=== PATIENT | male | born 1950 | race Caucasian/White ===

== ENCOUNTER 2017-03-15 07:34 | Inpatient (IN) | payer OTHER ==
--- NOTE | 2017-03-15 07:51 | ED ---
General Adult HPI - General Chief complaint: Dizziness Stated complaint: vertigo Time Seen by Provider: 03/15/17 07:36 Source: patient, EMS, RN notes reviewed, old records reviewed Mode of arrival: EMS Limitations: no limitations - History of Present Illness Initial comments: This is a 66-year-old male to the ER for evaluation today. This patient presents today for evaluation of dizziness. Patient has severe dizziness at this time, room spinning around when he awoke this morning. Carotid to get up and fell back into his bed secondary to dizziness. Symptoms were the bed and fell to the ground with unable to walk. Patient has no prior history of vertigo , no prior history of CVA. Patient does have high cholesterol as well as diabetes - Related Data Home Medications Medication Instructions Recorded Confirmed Aspirin 81 mg PO DAILY 09/06/15 03/15/17 Atorvastatin Calcium [Lipitor] 20 mg PO HS 09/06/15 03/15/17 metFORMIN HCL 1,000 mg PO BID 09/06/15 03/15/17 Ibuprofen [Motrin] 400 mg PO DAILY PRN 03/15/17 03/15/17 Saxagliptin HCl [Onglyza] 2.5 mg PO DAILY 03/15/17 03/15/17 Allergies Allergy/AdvReac Type Severity Reaction Status Date / Time No Known Allergies Allergy Verified 03/15/17 08:33 Review of Systems ROS Statement: Those systems with pertinent positive or pertinent negative responses have been documented in the HPI. ROS Other: All systems not noted in ROS Statement are negative. Past Medical History Past Medical History: Diabetes Mellitus, Hyperlipidemia Additional Past Medical History / Comment(s): hypercholestremia History of Any Multi-Drug Resistant Organisms: None Reported Past Surgical History: No Surgical Hx Reported Past Anesthesia/Blood Transfusion Reactions: No Reported Reaction Past Psychological History: No Psychological Hx Reported Smoking Status: Former smoker Past Alcohol Use History: Occasional Past Drug Use History: None Reported - Past Family History Father Family Medical History: No Reported History General Exam - General Exam Comments Initial Comments: NIH 0, negative heel jimenez, negative finger-nose Limitations: no limitations General appearance: alert, in no apparent distress Head exam: Present: atraumatic, normocephalic, normal inspection Eye exam: Present: normal appearance, PERRL, EOMI. Absent: scleral icterus, conjunctival injection, periorbital swelling ENT exam: Present: normal exam, mucous membranes moist Neck exam: Present: normal inspection. Absent: tenderness, meningismus, lymphadenopathy Respiratory exam: Present: normal lung sounds bilaterally. Absent: respiratory distress, wheezes, rales, rhonchi, stridor Cardiovascular Exam: Present: regular rate, normal rhythm, normal heart sounds. Absent: systolic murmur, diastolic murmur, rubs, gallop, clicks GI/Abdominal exam: Present: soft, normal bowel sounds. Absent: distended, tenderness, guarding, rebound, rigid Extremities exam: Present: normal inspection, full ROM, normal capillary refill. Absent: tenderness, pedal edema, joint swelling, calf tenderness Back exam: Present: normal inspection Neurological exam: Present: alert, oriented X3, CN II-XII intact Psychiatric exam: Present: normal affect, normal mood Skin exam: Present: warm, dry, intact, normal color. Absent: rash Course Vital Signs 03/15/17 03/15/17 03/15/17 07:44 07:57 08:45 Temperature 97.4 F L 97.4 F L 97.6 F Pulse Rate 74 68 75 Respiratory 18 15 16 Rate Blood Pressure 144/69 143/69 143/69 O2 Sat by Pulse 99 99 96 Oximetry 03/15/17 09:26 Temperature Pulse Rate 71 Respiratory 16 Rate Blood Pressure 108/65 O2 Sat by Pulse 97 Oximetry - Reevaluation(s) Reevaluation #1: 03/15/17 09:33 Attempt to walk patient, patient unable to ambulate secondary to severe dizziness and ataxia EKG Findings - EKG Comments: EKG Findings:: EKG shows normal sinus rhythm rate of 71, IL 134, QRS 86, QTC 417 Medical Decision Making - Medical Decision Making 62 female to the ER for evaluation of room spinning severe ataxia severe dizziness. Symptoms started after he awoke this morning. Her when he awoke with symptoms this morning. Patient denies any other neurological complaint, patient is completely unable to walk at this time. Patient be admitted for neurological evaluation - Lab Data Result diagrams: 03/15/17 07:40 03/15/17 07:40 Lab Results 03/15/17 03/15/17 03/15/17 Range/Units 07:40 07:40 07:40 WBC 10.2 (3.8-10.6) k/uL RBC 4.83 (4.30-5.90) m/uL Hgb 15.5 (13.0-17.5) gm/dL Hct 45.7 (39.0-53.0) % MCV 94.5 (80.0-100.0) fL MCH 32.0 (25.0-35.0) pg MCHC 33.9 (31.0-37.0) g/dL RDW 12.9 (11.5-15.5) % Plt Count 209 (150-450) k/uL Neutrophils % 62 % Lymphocytes % 25 % Monocytes % 8 % Eosinophils % 2 % Basophils % 1 % Neutrophils # 6.3 (1.3-7.7) k/uL Lymphocytes # 2.5 (1.0-4.8) k/uL Monocytes # 0.8 (0-1.0) k/uL Eosinophils # 0.2 (0-0.7) k/uL Basophils # 0.1 (0-0.2) k/uL PT (9.0-12.0) sec INR (<1.2) APTT (22.0-30.0) sec Sodium 140 (137-145) mmol/L Potassium 4.1 (3.5-5.1) mmol/L Chloride 105 (98-107) mmol/L Carbon Dioxide 24 (22-30) mmol/L Anion Gap 11 mmol/L BUN 13 (9-20) mg/dL Creatinine 0.97 (0.66-1.25) mg/dL Est GFR (MDRD) Af Amer >60 (>60 ml/min/1.73 sqM) Est GFR (MDRD) Non-Af >60 (>60 ml/min/1.73 sqM) Glucose 215 H (74-99) mg/dL POC Glucose (mg/dL) (75-99) mg/dL POC Glu Flexographic Press Plate Setter ID Calcium 9.0 (8.4-10.2) mg/dL Phosphorus 3.1 (2.5-4.5) mg/dL Magnesium 1.7 (1.6-2.3) mg/dL Total Bilirubin 0.5 (0.2-1.3) mg/dL AST 18 (17-59) U/L ALT 36 (21-72) U/L Alkaline Phosphatase 82 (38-126) U/L Total Creatine Kinase 72 (55-170) U/L CK-MB (CK-2) 0.6 (0.0-2.4) ng/mL CK-MB (CK-2) Rel Index 0.8 Troponin I <0.012 (0.000-0.034) ng/mL Total Protein 6.1 L (6.3-8.2) g/dL Albumin 3.9 (3.5-5.0) g/dL 03/15/17 03/15/17 Range/Units 07:40 07:54 WBC (3.8-10.6) k/uL RBC (4.30-5.90) m/uL Hgb (13.0-17.5) gm/dL Hct (39.0-53.0) % MCV (80.0-100.0) fL MCH (25.0-35.0) pg MCHC (31.0-37.0) g/dL RDW (11.5-15.5) % Plt Count (150-450) k/uL Neutrophils % % Lymphocytes % % Monocytes % % Eosinophils % % Basophils % % Neutrophils # (1.3-7.7) k/uL Lymphocytes # (1.0-4.8) k/uL Monocytes # (0-1.0) k/uL Eosinophils # (0-0.7) k/uL Basophils # (0-0.2) k/uL PT 10.2 (9.0-12.0) sec INR 1.0 (<1.2) APTT 20.5 L (22.0-30.0) sec Sodium (137-145) mmol/L Potassium (3.5-5.1) mmol/L Chloride (98-107) mmol/L Carbon Dioxide (22-30) mmol/L Anion Gap mmol/L BUN (9-20) mg/dL Creatinine (0.66-1.25) mg/dL Est GFR (MDRD) Af Amer (>60 ml/min/1.73 sqM) Est GFR (MDRD) Non-Af (>60 ml/min/1.73 sqM) Glucose (74-99) mg/dL POC Glucose (mg/dL) 197 H (75-99) mg/dL POC Glu Flexographic Press Plate Setter ID Facundo Drake Calcium (8.4-10.2) mg/dL Phosphorus (2.5-4.5) mg/dL Magnesium (1.6-2.3) mg/dL Total Bilirubin (0.2-1.3) mg/dL AST (17-59) U/L ALT (21-72) U/L Alkaline Phosphatase (38-126) U/L Total Creatine Kinase (55-170) U/L CK-MB (CK-2) (0.0-2.4) ng/mL CK-MB (CK-2) Rel Index Troponin I (0.000-0.034) ng/mL Total Protein (6.3-8.2) g/dL Albumin (3.5-5.0) g/dL Disposition Clinical Impression: Vertigo, Ataxia Disposition: ADMITTED IP TO THIS HOSP Condition: Undetermined Referrals: Imer Echols DO [Primary Care Provider] - 1-2 days
[2017-03-15] MEDS ORDERED: DIAZEPAM 5 MG/ML 2 ML SYRINGE IVP STA (08:05)
[2017-03-15] MEDS ORDERED: SODIUM CHLORIDE 0.9% 1,000 ML IV STA (08:05)
[2017-03-15] MEDS ORDERED: ONDANSETRON 4 MG/2 ML VIAL IVP STA (08:05)
[2017-03-15 08:17] LABS: Glucose,Whole Blood 197 mg/dL (75-99)
[2017-03-15 08:22] LABS: Basophils # (A) 0.1 k/uL (0-0.2); Basophils % (A) 1 %; CH 31.8; CHCM 33.8; Eosinophils # (A) 0.2 k/uL (0-0.7); Eosinophils % (A) 2 %; HCT 45.7 % (39.0-53.0); HDW 2.24; HGB 15.5 gm/dL (13.0-17.5); Luc # (Auto) 0.28; Luc % (Auto) 3; Lymphocytes # (A) 2.5 k/uL (1.0-4.8); Lymphocytes % (A) 25 %; MCHC 33.9 g/dL (31.0-37.0); MCV 94.5 fL (80.0-100.0); Mean Platelet Volume 8.2; Monocytes # (A) 0.8 k/uL (0-1.0); Monocytes % (A) 8 %; Neutrophils # (A) 6.3 k/uL (1.3-7.7); Neutrophils % (A) 62 %; RBC 4.83 m/uL (4.30-5.90); RDW 12.9 % (11.5-15.5); WBC 10.2 k/uL (3.8-10.6); WBC (Perox) 9.77
[2017-03-15 08:31] LABS: ALT 36 U/L (21-72); AST 18 U/L (17-59); Alkaline Phosphatase 82 U/L (38-126); Anion Gap 11 mmol/L; Blood Urea Nitrogen 13 mg/dL (9-20); Carbon Dioxide 24 mmol/L (22-30); Chloride 105 mmol/L (98-107); Glucose 215 mg/dL (74-99); Magnesium 1.7 mg/dL (1.6-2.3); Non-African American GFR(MDRD) >60 (>60 ml/min/1.73 sqM); Phosphorous 3.1 mg/dL (2.5-4.5); Potassium 4.1 mmol/L (3.5-5.1); Sodium 140 mmol/L (137-145); Total Bilirubin 0.5 mg/dL (0.2-1.3); Total Protein 6.1 g/dL (6.3-8.2)
[2017-03-15 08:32] LABS: Prothrombin Time 10.2 sec (9.0-12.0)
--- NOTE | 2017-03-15 08:35 | CT ---
EXAMINATION TYPE: CT brain wo con DATE OF EXAM: 03/15/2017 COMPARISON: NONE HISTORY: vertigo CT DLP: 1008.4 mGycm Automated exposure control for dose reduction was used. FINDINGS: Central structures are midline. There is no evidence of hydrocephalus. No acute focal lesion, mass ef fect or midline shift is seen. I do not see evidence of intracranial blood. No CP angle mass lesion i s seen. The orbits appear normal. There is mild mucoperiosteal thickening involving the maxillary sinuses bilaterally. There is a 1.2 c m retention cyst or polyp involving the medial wall of the left maxillary sinus. Mastoid air cells ar e clear. IMPRESSION: 1. NO ACUTE INTRACRANIAL ABNORMALITY. 2. MILD, CHRONIC MAXILLARY SINUS MUCOSAL DISEASE.
[2017-03-15 08:39] LABS: Partial Thromboplastin Time 20.5 sec (22.0-30.0)
[2017-03-15 08:50] LABS: Creatine Kinase 72 U/L (55-170)
[2017-03-15 09:03] LABS: Creatine Kinase MB 0.6 ng/mL (0.0-2.4); Troponin I <0.012 ng/mL (0.000-0.034)
[2017-03-15] MEDS ORDERED: ASPIRIN 325 MG TAB PO STA (09:29)
[2017-03-15] MEDS ORDERED: MECLIZINE 25 MG TAB PO PRN (09:37)
[2017-03-15] MEDS ORDERED: ONDANSETRON 4 MG/2 ML VIAL IVP PRN (09:38)
[2017-03-15] MEDS: SODIUM CHLORIDE 0.9% 1,000 ML IV SCH ×2 (09:56→22:05)
--- NOTE | 2017-03-15 10:22 | US ---
EXAMINATION TYPE: US carotid duplex BILAT DATE OF EXAM: 03/15/2017 COMPARISON: NONE CLINICAL HISTORY: Stenosis. Vertigo EXAM MEASUREMENTS: RIGHT: Peak Systolic Velocity (PSV) cm/sec ----- Right CCA: 107.5 ----- Right ICA: 77.9 ----- Right ECA: 115.1 ICA/CCA ratio: 0.7 RIGHT: End Diastole cm/sec ----- Right CCA: 7.4 ----- Right ICA: 27.4 ----- Right ECA: 7.6 LEFT: Peak Systolic Velocity (PSV) cm/sec ----- Left CCA: 98.4 ----- Left ICA: 84.0 ----- Left ECA: 108.6 ICA/CCA ratio: 0.9 LEFT: End Diastole cm/sec ----- Left CCA: 14.4 ----- Left ICA: 25.8 ----- Left ECA: 10.2 VERTEBRALS (direction of flow): Right Vertebral: Antegrade Left Vertebral: Antegrade Mild plaque bilateral bifurcations. No evidence of significant stenosis IMPRESSION: I DO NOT SEE EVIDENCE OF A HEMODYNAMICALLY SIGNIFICANT STENOSIS IN EITHER CAROTID SYSTEM. Criteria for Assigning % of Stenosis / Diameter reduction (Estimation based on the indirect measurements of the internal carotid artery velocities (ICA PSV). 1. Normal (no stenosis)=ICA PSV < 125 cm/s: ratio < 2.0: ICA EDV<40 cm/s. 2. Less than 50% stenosis=ICA PSV < 125 cm/s: ratio < 2.0: ICA EDV<40 cm/s. 3. 50 to 69% stenosis=ICA PSV of 125 to 230 cm/s: ration 2.0 ? 4.0: ICA EDV 40-100 cm/s. 4. Greater than 70% stenosis to near occlusion= ICA PSV > 230 cm/s: ratio > 4.0: ICA EDV > 100 cm/s. 5. Near occlusion= ICA PSV velocities may be low or undetectable: variable ratio and ICA EDV. 6. Total occlusion=unable to detect flow.
--- NOTE | 2017-03-15 10:42 | ECHOF ---
Referral Reason:Thrombus MEASUREMENTS -------- HEIGHT: 152.4 cm WEIGHT: 93.0 kg BP: 130/40 RVIDd: 3.2 cm (< 3.3) IVSd: 1.1 cm (0.6 - 1.1) LVIDd: 4.5 cm (3.9 - 5.3) LVPWd: 0.9 cm (0.6 - 1.1) IVSs: 1.5 cm LVIDs: 4.2 cm LVPWs: 0.9 cm LA Diam: 3.1 cm (2.7 - 3.8) LAESV Index (A-L): 30.45 ml/m Ao Diam: 3.6 cm (2.0 - 3.7) AV Cusp: 2.4 cm (1.5 - 2.6) LA Diam: 3.7 cm (2.7 - 3.8) MV EXCURSION: 23.601 mm (> 18.000) MV EF SLOPE: 135 mm/s (70 - 150) EPSS: 0.4 cm MV E Clay: 0.70 m/s MV DecT: 230 ms MV A Clay: 0.80 m/s MV E/A Ratio: 0.89 RAP: 5.00 mmHg RVSP: 10.74 mmHg FINDINGS -------- Sinus rhythm. This was a technically good study. There is mild concentric left ventricular hypertrophy. Overall left ventricular systolic function is normal with, an EF between 55 - 60 %. The right ventricle is normal in size. LA is midly dilated 29-33ml/m2. The right atrial size is normal. There is mild aortic valve sclerosis. There is no evidence of aortic regurgitation. Mild mitral annular calcification present. Mild mitral regurgitation is present. Mild tricuspid regurgitation present. There is no evidence of pulmonary hypertension. The right ventricular systolic pressure, as measured by Doppler, is 10.74mmHg. There is no pulmonic regurgitation present. The aortic root size is normal. There is no pericardial effusion. CONCLUSIONS -------- 1. There is mild concentric left ventricular hypertrophy. 2. The aortic root size is normal. 3. There is no pericardial effusion. 4. Overall left ventricular systolic function is normal with, an EF between 55 - 60 %. 5. LA is midly dilated 29-33ml/m2. 6. There is mild aortic valve sclerosis. 7. Mild mitral annular calcification present. 8. Mild mitral regurgitation is present. 9. Mild tricuspid regurgitation present. 10. There is no evidence of pulmonary hypertension. 11. The right ventricular systolic pressure, as measured by Doppler, is 10.74mmHg. GATE SUPERVISOR: Meagan Lee RDCS
--- NOTE | 2017-03-15 13:59 | P.HPIM ---
History of Present Illness Patient is a 66-year-old male came in with compensative room spinning around her vertigo has been going on for about a week worsens with head movement. Patient denied any hearing or hearing problems patient denied any weakness anywhere patient denied any fullness in the ears patient denied any sinusitis like symptoms. Patient denied any fever chills, nausea vomiting. Patient is unstable and unable to walk literally has been crawling lately. I tried to stand him up patient is positive Romberg sign with eyes open and closed and other cerebellar signs are negative. Patient does not appear to have any focal weakness but does have unsteadiness I did not appreciate any significant truncal ataxia. I did perform Cameron Hallspike maneuver with partial improvement in symptoms but symptoms came back after after a while Review of Systems REVIEW OF SYSTEMS: CONSTITUTIONAL: No fever, no malaise, no fatigue. HEENT: No recent visual problems or hearing problems. Denied any sore throat. CARDIOVASCULAR: No chest pain, orthopnea, PND, no palpitations, no syncope. PULMONARY: No shortness of breath, no cough, no hemoptysis. GASTROINTESTINAL: No diarrhea, no nausea, no vomiting, no abdominal pain. Normoactive bowel sounds. NEUROLOGICAL: No headaches, no weakness, no numbness. HEMATOLOGICAL: Denies any bleeding or petechiae. GENITOURINARY: Denies any burning micturition, frequency, or urgency. MUSCULOSKELETAL/RHEUMATOLOGICAL: Denies any joint pain, swelling, or any muscle pain. ENDOCRINE: Denies any polyuria or polydipsia. The rest of the 14-point review of systems is negative. Past Medical History Past Medical History: Diabetes Mellitus, Hyperlipidemia Additional Past Medical History / Comment(s): hypercholestremia History of Any Multi-Drug Resistant Organisms: None Reported Past Surgical History: No Surgical Hx Reported Past Anesthesia/Blood Transfusion Reactions: No Reported Reaction Past Psychological History: No Psychological Hx Reported Smoking Status: Former smoker Past Alcohol Use History: Occasional Past Drug Use History: None Reported - Past Family History Father Family Medical History: No Reported History Medications and Allergies Home Medications Medication Instructions Recorded Confirmed Type Aspirin 81 mg PO DAILY 09/06/15 03/15/17 History Atorvastatin Calcium [Lipitor] 20 mg PO HS 09/06/15 03/15/17 History metFORMIN HCL 1,000 mg PO BID 09/06/15 03/15/17 History Ibuprofen [Motrin] 400 mg PO DAILY PRN 03/15/17 03/15/17 History Saxagliptin HCl [Onglyza] 2.5 mg PO DAILY 03/15/17 03/15/17 History Allergies Allergy/AdvReac Type Severity Reaction Status Date / Time No Known Allergies Allergy Verified 03/15/17 08:33 Physical Exam Vitals: Vital Signs Temp Pulse Pulse Resp BP BP Pulse Ox 03/15/17 12:40 98.4 F 76 18 131/63 97 03/15/17 12:29 98.2 F 75 16 130/68 98 03/15/17 11:29 98.5 F 75 16 108/55 98 03/15/17 10:30 97.7 F 71 18 136/68 97 03/15/17 10:15 97.5 F L 70 14 151/70 97 03/15/17 09:26 97.7 F 71 16 108/65 97 03/15/17 08:45 97.6 F 75 16 143/69 96 03/15/17 07:57 97.4 F L 68 15 143/69 99 03/15/17 07:44 97.4 F L 74 18 144/69 99 Intake and Output 03/14/17 03/15/17 03/15/17 22:59 06:59 14:59 Other: Weight 92.986 kg Patient Weight 03/16/17 06:59 Weight 92.986 kg PHYSICAL EXAMINATION: GENERAL: The patient is alert and oriented x3, not in any acute distress. Well developed, well nourished. HEENT: Pupils are round and equally reacting to light. EOMI. No scleral icterus. No conjunctival pallor. Normocephalic, atraumatic. No pharyngeal erythema. No thyromegaly. CARDIOVASCULAR: S1 and S2 present. No murmurs, rubs, or gallops. PULMONARY: Chest is clear to auscultation, no wheezing or crackles. ABDOMEN: Soft, nontender, nondistended, normoactive bowel sounds. No palpable organomegaly. MUSCULOSKELETAL: No joint swelling or deformity. EXTREMITIES: No cyanosis, clubbing, or pedal edema. NEUROLOGICAL: As mentioned in HPI SKIN: No rashes. Results CBC & Chem 7: 03/15/17 07:40 03/15/17 07:40 Labs: Abnormal Lab Results - Last 24 Hours (Table) 03/15/17 03/15/17 03/15/17 Range/Units 07:40 07:40 07:54 APTT 20.5 L (22.0-30.0) sec Glucose 215 H (74-99) mg/dL POC Glucose (mg/dL) 197 H (75-99) mg/dL Total Protein 6.1 L (6.3-8.2) g/dL Assessment and Plan Plan: #1 vertigo: Not sure whether patient has central or peripheral vertigo. Patient 's Romberg sign is positive with eyes open. Because of which there is concern of cerebellar in involvement. Because of which neurology was consulted. Patient is on meclizine at this point of time. I'll leave the dishes and off MRI to neurology. Patient does have unstable gait because of his the concern is more for cerebellar involvement. Patient underwent carotid Doppler and echocardiogram all of which are essentially within normal limits patient is presently on aspirin. #2 type 2 diabetes mellitus: Patient was resumed on his home regimen monitor blood sugars sliding scale insulin. #3 hyperlipidemia
[2017-03-15 18:31] VITALS: BMI 29.3
[2017-03-15] MEDS ORDERED: IBUPROFEN 200 MG TAB PO PRN (19:44)
[2017-03-15] MEDS: MECLIZINE 25 MG TAB PO PRN (20:57)
[2017-03-15] MEDS ORDERED: ATORVASTATIN 20 MG TAB PO SCH (21:00)
[2017-03-15] MEDS ORDERED: ATORVASTATIN 80 MG TAB PO SCH (21:00)
--- NOTE | 2017-03-15 21:02 | P.CNNES ---
History of Present Illness Consult date: 03/15/17 History of Present Illness: The patient is a 66-year-old right-handed white male who states that he woke up around 6:30 AM and fell back into bed because of severe vertigo. When he stood up to walk he fell to the floor because of vertigo. He had some nausea but no vomiting. He asked his to call EMS and he was brought to the hospital. He states he is feeling better now but continues to have some vertigo with fast head movements or quick movements of his body. He denied any other neurologic complaints such as double vision weakness numbness speech or swallowing difficulty. He states he had usual activities yesterday. He does not smoke he does drink caffeine. 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 He denied any recent infections. He did receive Valium in the emergency room which helped. He had a CT of the brain in the emergency room which showed mild chronic maxillary sinus disease. There was no acute intracranial abnormality. Take 1 baby aspirin daily. Review of Systems Constitutional: Denies chills, Denies fever Eyes: denies blurred vision, denies pain Ears, nose, mouth and throat: Denies headache, Denies sore throat Cardiovascular: Denies chest pain, Denies shortness of breath Respiratory: Denies cough Musculoskeletal: Denies myalgias Neurological: Denies numbness, Denies weakness Past Medical History Past Medical History: Diabetes Mellitus, Hyperlipidemia Additional Past Medical History / Comment(s): hypercholestremia History of Any Multi-Drug Resistant Organisms: None Reported Past Surgical History: No Surgical Hx Reported Additional Past Surgical History / Comment(s): 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 Past Anesthesia/Blood Transfusion Reactions: No Reported Reaction Past Psychological History: No Psychological Hx Reported Smoking Status: Former smoker Past Alcohol Use History: Occasional Past Drug Use History: None Reported - Past Family History Father Family Medical History: No Reported History Mother Family Medical History: No Reported History Medications and Allergies Home Medications Medication Instructions Recorded Confirmed Type Aspirin 81 mg PO DAILY 09/06/15 03/15/17 History Atorvastatin Calcium [Lipitor] 20 mg PO HS 09/06/15 03/15/17 History metFORMIN HCL 1,000 mg PO BID 09/06/15 03/15/17 History Ibuprofen [Motrin] 400 mg PO DAILY PRN 03/15/17 03/15/17 History Saxagliptin HCl [Onglyza] 2.5 mg PO DAILY 03/15/17 03/15/17 History Allergies Allergy/AdvReac Type Severity Reaction Status Date / Time No Known Allergies Allergy Verified 03/15/17 08:33 Physical Examination - Vital Signs Vital Signs: Vital Signs Temp Pulse Pulse Resp BP BP Pulse Ox 03/15/17 18:29 97.8 F 92 16 155/70 94 L 03/15/17 17:03 98.0 F 86 16 137/60 98 03/15/17 14:24 98 F 78 16 148/68 96 03/15/17 12:40 98.4 F 76 18 131/63 97 03/15/17 12:29 98.2 F 75 16 130/68 98 03/15/17 11:29 98.5 F 75 16 108/55 98 03/15/17 10:30 97.7 F 71 18 136/68 97 03/15/17 10:15 97.5 F L 70 14 151/70 97 03/15/17 09:26 97.7 F 71 16 108/65 97 03/15/17 08:45 97.6 F 75 16 143/69 96 03/15/17 07:57 97.4 F L 68 15 143/69 99 03/15/17 07:44 97.4 F L 74 18 144/69 99 Intake and Output 03/15/17 03/15/17 03/15/17 06:59 14:59 22:59 Intake Total 240 Output Total 300 Balance -60 Intake: Oral 240 Output: Urine 300 Other: # Bowel Movements 1 Weight 92.9 kg Patient Weight 03/16/17 06:59 Weight 92.9 kg - Constitutional General appearance: average body habitus, cooperative - EENT EENT: PERRL - Respiratory Respiratory: lungs clear - Cardiovascular Cardiovascular: regular rate, normal S1, normal S2 - Integumentary Integumentary: normal - Neurologic Mental status he was awake alert and oriented his speech was fluent there was no a aphasia or dysarthria Cranial nerve examination: PERRL, EOMI, VFF, V1/V2/V3 grossly intact, face symmetric, tongue midline Speech examination: intact Detailed motor examination: grossly full strength in all extremities Motor examination - right side: 5/5: biceps, triceps, wrist flexion, wrist extension, print production coordinator, hip flexors, knee extensors, dorsiflexion, toe extension (EHL) , plantarflexion Motor examination - left side: 5: biceps, triceps, wrist flexion, wrist extension, print production coordinator, hip flexors, knee extensors, dorsiflexion, toe extension (EHL) , plantarflexion Detailed sensory examination: intact Cerebellar examination: other (Finger to nose [id number] was intact) - Psychiatric Psychiatric: mood/affect appropriate Results - Laboratory Findings CBC and BMP: 03/15/17 07:40 03/15/17 07:40 Abnormal Lab Findings: Abnormal Labs 03/15/17 03/15/17 03/15/17 07:40 07:40 07:54 APTT 20.5 L Glucose 215 H POC Glucose (mg/dL) 197 H Total Protein 6.1 L Assessment and Plan (1) Vertigo Status: Acute Plan: The patient is a 66-year-old man who had sudden onset vertigo this morning. He is improved somewhat. He has no focal neurologic deficit. He had a CT of the brain which is unremarkable. He will be started on meclizine. Did have a carotid ultrasound and echocardiogram which were unremarkable. An MRI of the brain. Her goal is likely of a peripheral vestibular origin. Recommend increased baby aspirin to twice a day . Recommend ENT evaluation which can be done outpatient.
[2017-03-15] MEDS ORDERED: ACETAMINOPHEN TAB 325 MG TAB PO PRN (21:56)
[2017-03-15] MEDS: metFORMIN 500 MG TAB PO SCH (22:04)
[2017-03-16 03:28] LABS: Cholesterol 130 mg/dL (<200); HDL Cholesterol 47 mg/dL (40-60); Triglycerides 63 mg/dL (<150)
[2017-03-16] MEDS: SODIUM CHLORIDE 0.9% 1,000 ML IV SCH (07:45)
--- NOTE | 2017-03-16 08:43 | MR ---
EXAMINATION TYPE: MR MRA/MRV head wo con DATE OF EXAM: 03/16/2017 COMPARISON: NONE HISTORY: Possible stroke TECHNIQUE: Time of flight images focusing on the [place] were performed without contrast.. 2-D and 3-D postprocessing imaging is performed. MRV was also performed. FINDINGS: MRA OF THE [place]: There is a origin of the right posterior cerebral artery. The left posterior communicating artery is not visualized. Both ophthalmic arteries are visualized. There is normal arborization of the middle cerebral arteries. No sizable aneurysm is seen. MRV OF THE BRAIN: The right sigmoid sinus is dominant. The left sigmoid sinus is not visualized. No f illing defects are visualized. IMPRESSION: 1. NORMAL VARIANT ANATOMY OF THE [place] OF [place]. 2. DOMINANT RIGHT SIGMOID SINUS WITH FAILURE TO VISUALIZE THE LEFT SIGMOID SINUS.
--- NOTE | 2017-03-16 08:47 | MR ---
EXAMINATION TYPE: MR brain wo con DATE OF EXAM: 03/16/2017 8:23 AM. COMPARISON: Previous CT scan of the brain dated 03/15/2017 HISTORY: Stroke. Technique: Multiplanar, multiecho imaging of the brain was obtained without intravenous contrast. FINDINGS: Midline structures are unremarkable. There is a normal craniocervical junction. Echoplanar diffusion imaging shows no evidence of restricted diffusion. There are normal vascular flow voids. The orbits are normal. There is mild mucoperiosteal thickening involving the ethmoid, maxillary and frontal sinuses. There i s a 1.2 cm retention cyst or polyp involving the medial wall of the left maxillary sinus. There are scattered, punctate high signal lesion on FLAIR imaging. These are mostly in the deep white matter tracts. There are some subcortical lesions. These are likely on the basis of small vessel dis ease. Other forms of demyelination are not excluded. There is no mass effect, midline shift or intrac ranial blood identified. IMPRESSION: 1. NO ACUTE INTRACRANIAL ABNORMALITY. 2. PUNCTATE FLAIR LESIONS THROUGHOUT THE DEEP WHITE MATTER TRACTS OF THE CEREBRAL HEMISPHERES, LIKELY ON THE BASIS OF SMALL VESSEL DISEASE.
[2017-03-16] MEDS ORDERED: ASPIRIN 81 MG CHEW PO SCH ×2 (09:00)
[2017-03-16] MEDS: metFORMIN 500 MG TAB PO SCH (09:00)
[2017-03-16 09:23] VITALS: RESP 18
[2017-03-16] MEDS: MECLIZINE 25 MG TAB PO PRN (09:27)
[2017-03-16] MEDS ORDERED: ASPIRIN 325 MG TAB PO SCH (09:30)
[2017-03-16 11:27] LABS: Glucose,Whole Blood 233 mg/dL (75-99)
[2017-03-16 12:14] VITALS: BP 146/65; PULSE 86; TEMP 98.7
--- NOTE | 2017-03-16 12:35 | P.DS ---
Providers Date of admission: 03/15/17 09:29 Attending physician: Mindy Romo Consults: 03/15/17 09:30 Consult Physician Routine Consulting Provider: Charly Renteria Consult Reason/Comments: ataxia Do you want consulting provider notified?: Yes [facility] Course: 66-year-old admitted secondary to vertigo. Patient was evaluated by neurology as well. And they believe his vertigo is was tubular are peripheral in origin. Patient underwent workup for cerebellar stroke. MRA did show some nonspecific white matter changes beyond that no other significant abnormality was appreciated. Discussed with neurology on phone. And patient is being discharged on aspirin 81 mg twice a day along with meclizine. His symptoms of vertigo improved, but still having some vertiginous symptoms at with head movement. Patient was evaluated by physical therapy and occupational therapy and the patient apparently did well today with them. And they're not recommending any physical therapy at home. Patient will follow up with neurology as well as ENT as an outpatient and patient will be continued on meclizine for 3 weeks as recommended by neurology. Patient now and carotid Doppler and echocardiogram both of which are essentially within normal limits. PHYSICAL EXAMINATION: GENERAL: The patient is alert and oriented x3, not in any acute distress. Well developed, well nourished. HEENT: Pupils are round and equally reacting to light. EOMI. No scleral icterus. No conjunctival pallor. Normocephalic, atraumatic. No pharyngeal erythema. No thyromegaly. CARDIOVASCULAR: S1 and S2 present. No murmurs, rubs, or gallops. PULMONARY: Chest is clear to auscultation, no wheezing or crackles. ABDOMEN: Soft, nontender, nondistended, normoactive bowel sounds. No palpable organomegaly. MUSCULOSKELETAL: No joint swelling or deformity. EXTREMITIES: No cyanosis, clubbing, or pedal edema. NEUROLOGICAL: Gross neurological examination did not reveal any focal deficits. SKIN: No rashes. #1 vertigo: which are essentially within normal limits patient is presently on aspirin. #2 type 2 diabetes mellitus: Patient was resumed on his home regimen #3 hyperlipidemia Patient Condition at Discharge: Undetermined Plan - Discharge Summary New Discharge Prescriptions: New Meclizine [Antivert] 25 mg PO TID PRN #60 tab PRN Reason: Vertigo Continue metFORMIN HCL 1,000 mg PO BID Atorvastatin Calcium [Lipitor] 20 mg PO HS Saxagliptin HCl [Onglyza] 2.5 mg PO DAILY Ibuprofen [Motrin] 400 mg PO DAILY PRN PRN Reason: Pain Changed Aspirin 81 mg PO BID #0 Discharge Medication List Atorvastatin Calcium [Lipitor] 20 mg PO HS 09/06/15 [History] metFORMIN HCL 1,000 mg PO BID 09/06/15 [History] Ibuprofen [Motrin] 400 mg PO DAILY PRN 03/15/17 [History] Saxagliptin HCl [Onglyza] 2.5 mg PO DAILY 03/15/17 [History] Aspirin 81 mg PO BID #0 03/16/17 [Rx] Meclizine [Antivert] 25 mg PO TID PRN #60 tab 03/16/17 [Rx] Follow up Appointment(s)/Referral(s): Imer Echols DO [Primary Care Provider] - 3 Days Michelle Renteria MD [STAFF PHYSICIAN] - 1 Week Charles Meyers DO [Doctor of Osteopathic Medicine] - 1 Week Discharge Disposition: HOME SELF-CARE
== END 2017-03-16 14:37 | disposition home or self-care (01) | DRG 149 ==
LOC: EC 07:34 → 6SEL 09:29
PROVIDERS: ADMIT Hospitalist; ATTEND Hospitalist
DX: R42 Dizziness and giddiness (principal); E11.9 Type 2 diabetes mellitus without complications; E78.5 Hyperlipidemia, unspecified; H91.90 Unspecified hearing loss, unspecified ear; J32.0 Chronic maxillary sinusitis; Z79.84 Long term (current) use of oral hypoglycemic drugs; Z79.82 Long term (current) use of aspirin; Z79.899 Other long term (current) drug therapy; Z87.891 Personal history of nicotine dependence; W18.30XA Fall on same level, unspecified, initial encounter
CPT/HCPCS: 36415; 70450; 70544; 70551; 80053; 80061; 82550; 82553; 83735; 84100; 84484; 85025; 85610; 85730; 93005; 93306; 93880; 96361; 96374; 96375; 99285

== ENCOUNTER 2017-07-11 07:46 | Day surgery (SDC) | payer OTHER ==
[2017-07-10 08:58] VITALS: BMI 28.7
[~2017-07-11 07:46] MED LIST: LACTATED RINGERS 1,000 ML IV SCH
[2017-07-11 08:14] VITALS: TEMP 98.3
[2017-07-11] MEDS ORDERED: LIDOCAINE 1% 20 ML VIAL (10MG/ML) FOR IV START INTRADERMA ONE (08:16)
[2017-07-11 08:27] LABS: Glucose,Whole Blood 168 mg/dL (75-99)
[2017-07-11] MEDS ORDERED: PROPOFOL 10 MG/ML 20 ML VIAL IV ONE (09:21)
[2017-07-11] MEDS ORDERED: LIDOCAINE 1% INJ 10MG/ML (20 ML MDV) ONE (09:21)
--- NOTE | 2017-07-11 09:42 | P.PCN ---
Date of Procedure: 07/11/17 Procedure(s) Performed: Procedure: Total colonoscopy. Preoperative diagnosis: Screening for neoplasia, patient has history of polyps. Postoperative diagnosis: Sigmoid diverticulosis with no evidence of acute diverticulitis, strictures, polyps or cancer. Preparation: HalfLytely prep. Sedation: Was provided by anesthesia. Brief clinical history: The patient is a 67-year-old male who is referred for this evaluation for screening for neoplasia because of history of polyps. His last exam was on November 30, 2011. The patient has no abdominal complaints, bleeding or anemia. Procedure: With the patient on his left lateral decubitus position and after informed consent and adequate sedation, the perianal area was inspected and it did not show any fissures or fistulas. There were no masses felt on digital rectal examination. The Olympus CFQ 160L video colonoscope was then inserted in the rectum in the usual fashion and advanced to the cecum. There were few diverticular orifices seen scattered in the sigmoid with no evidence of acute diverticulitis or strictures. No polyps or tumors were seen. I retroflexed the endoscope in the rectum before the endoscope was withdrawn. The patient tolerated the procedure well. Plan: The patient was reassured. Discussed dietary measures. I recommended repeat exam in 5 years. He will follow up with you as planned.
[2017-07-11 09:49] LABS: Glucose,Whole Blood 154 mg/dL (75-99)
[2017-07-11 10:09] VITALS: BP 108/67; PULSE 71; RESP 16
== END 2017-07-11 10:21 | disposition home or self-care (01) ==
LOC: ORWHC2ENDO 07:46
DX: Z12.11 Encounter for screening for malignant neoplasm of colon (principal); K57.30 Diverticulosis of large intestine without perforation or abscess without bleeding; E78.5 Hyperlipidemia, unspecified; E11.9 Type 2 diabetes mellitus without complications; Z86.010 Personal history of colon polyps; Z79.84 Long term (current) use of oral hypoglycemic drugs; Z79.1 Long term (current) use of non-steroidal anti-inflammatories (NSAID); Z79.82 Long term (current) use of aspirin; Z79.899 Other long term (current) drug therapy
CPT/HCPCS: G0105; J2001; J2704; 45378

== ENCOUNTER → 2018-12-19 | Outpatient (CLI) | payer OTHER ==
--- NOTE | 2018-12-19 16:14 | MR ---
EXAMINATION TYPE: MR shoulder RT wo con DATE OF EXAM: 12/19/2018 COMPARISON: Outside right shoulder x-ray October 15, 2018 HISTORY: Pain in right shoulder per order. Pain with difficulty raising overhead for 3 years per osiel ent. TECHNIQUE: Multiplanar, multisequence imaging of the right shoulder is performed without contrast. FINDINGS: Exam noted suboptimal as patient could not complete the entire protocol due to pain. Motion artifact degradation is seen. Distal rotator cuff shows at least some intact fibers with surrounding fluid. Rotator cuff muscle bulk is fairly well-preserved. There is moderate glenohumeral joint effus ion. Moderate capsular hypertrophy and narrowing at acromioclavicular joint is seen. Long head of bic eps is intact to the labral anchor. Bone marrow signal intensity is fairly well-preserved. IMPRESSION: As above, Limited study.
== END | disposition home or self-care (01) ==
LOC: RADMRIMAIN 11:28
PROVIDERS: ATTEND Orthopaedic Surgery
DX: M25.411 Effusion, right shoulder (principal); M25.811 Other specified joint disorders, right shoulder

== ENCOUNTER 2021-08-10 06:40 | Day surgery (SDC) | payer OTHER ==
[2021-08-06 16:32] VITALS: BMI 28.7
[2021-08-10] MEDS ORDERED: LACTATED RINGERS 1,000 ML IV SCH (06:44)
[2021-08-10] MEDS ORDERED: LIDOCAINE 1% (10MG/ML) FOR IV START INTRADERMA PRN (06:44)
[2021-08-10] MEDS ORDERED: LACTATED RINGERS 1,000 ML IV ONE (07:16)
[2021-08-10 07:18] LABS: Glucose,Whole Blood 168 mg/dL (75-99)
[2021-08-10 07:30] VITALS: RESP 16; TEMP 98
[2021-08-10] MEDS ORDERED: PROPOFOL 10 MG/ML 20 ML VIAL IV ONE (07:44)
--- NOTE | 2021-08-10 08:02 | P.PCN ---
Date of Procedure: 08/10/21 Procedure(s) Performed: BRIEF HISTORY: Patient is a 71-year-old pleasant male scheduled for an elective colonoscopy as a part of screening for colon cancer and family history of colon cancer diagnosed in his mother at age 70. PROCEDURE PERFORMED: Colonoscopy. PREOPERATIVE DIAGNOSIS: Screening for colon cancer and family history of colon cancer. IV sedation per Anesthesia. PROCEDURE: After informed consent was obtained, the patient, was brought into the endoscopy unit. IV sedation was administered by Anesthesia under continuous monitoring. Digital rectal examination was normal. Initially the Olympus CF-160 flexible video colonoscope was then inserted in the rectum, gradually advanced into the cecum without any difficulty. Careful examination was performed as the scope was gradually being withdrawn. Ileocecal valve and the appendiceal orifice were visualized and appeared normal. Prep was excellent. Mucosa of the cecum, ascending colon, transverse colon, descending colon, sigmoid colon, and rectum appeared normal. Retroflexion was performed in the rectum and no lesions were seen. The patient tolerated the procedure well. IMPRESSION: Normal-appearing colon from rectum to cecum with no evidence of colorectal neoplasia . RECOMMENDATIONS: Findings of this examination were discussed with the patient as well as his family. He was advised to have a repeat screening coloscopy every 5 years because of the family history of colon cancer.
[2021-08-10 08:11] VITALS: PULSE 75
[2021-08-10 08:26] VITALS: BP 115/71
== END 2021-08-10 08:37 | disposition home or self-care (01) ==
LOC: ORWHC2ENDO 06:40
PROVIDERS: ATTEND Internal Medicine Gastroenterology
DX: Z12.11 Encounter for screening for malignant neoplasm of colon (principal); Z80.0 Family history of malignant neoplasm of digestive organs
CPT/HCPCS: 45378; J2704

== ENCOUNTER 2023-10-11 08:38 | Day surgery (SDC) | payer OTHER ==
[2023-10-09 13:45] VITALS: BMI 25.8
[~2023-10-11 08:38] MED LIST changes: -LACTATED RINGERS 1,000 ML IV SCH; +LIDOCAINE 1% (10MG/ML) FOR IV START INTRADERMA PRN
[2023-10-11] MEDS: LACTATED RINGERS 1,000 ML IV SCH (09:46)
[2023-10-11 09:51] LABS: Glucose,Whole Blood 135 mg/dL (70-110)
[2023-10-11] MEDS ORDERED: PROPOFOL 10 MG/ML 20 ML VIAL IV ONE (09:58)
[2023-10-11 10:02] VITALS: TEMP 97.6
--- NOTE | 2023-10-11 10:18 | P.PCN ---
Date of Procedure: 10/11/23 Procedure(s) Performed: BRIEF HISTORY: Patient is a 73-year-old pleasant white female scheduled for an elective colonoscopy as a part of evaluation of chronic diarrhea for the last 3 months duration. PROCEDURE PERFORMED: Colonoscopy with biopsy and snare polypectomy. PREOPERATIVE DIAGNOSIS: Chronic diarrhea of 3 months duration.. IV sedation per Anesthesia. PROCEDURE: After informed consent was obtained, the patient, was brought into the endoscopy unit. IV sedation was administered by Anesthesia under continuous monitoring. Digital rectal examination was normal. Initially the Olympus CF-160 flexible video colonoscope was then inserted in the rectum, gradually advanced into the cecum without any difficulty. Careful examination was performed as the scope was gradually being withdrawn. Ileocecal valve and the appendiceal orifice were visualized and appeared normal. Prep was excellent. Mucosa of the cecum, ascending colon, appeared normal. In the transverse colon there was a 1 cm flat polyp that was removed by snare polypectomy. Rest of the transverse colon, descending colon, sigmoid colon, and rectum appeared normal. In the rectum there was a 3 mm polyp removed by cold biopsy. Scattered sigmoid diverticula seen. Biopsies were done from ascending and descending colon to rule out microscopic/collagenous colitis. Retroflexion was performed in the rectum and no lesions were seen. The patient tolerated the procedure well. IMPRESSION: 1 cm flat transverse colon polyp status post snare polypectomy 3 mm rectal polyp status post cold biopsy Scattered sigmoid diverticulosis RECOMMENDATIONS: Findings of this examination were discussed with the patient as well as his family. He was advised to follow with the biopsy results. If the biopsy result adenoma he can have a repeat colonoscopy in 3 years. In regards to the chronic diarrhea recommended that he stopped magnesium supplements and use [id number] Imodium as needed..
[2023-10-11 12:06] VITALS: BP 123/76; PULSE 74; RESP 20
== END 2023-10-11 10:50 | disposition home or self-care (01) ==
LOC: ORWHC2ENDO 08:38
PROVIDERS: ATTEND Internal Medicine Gastroenterology
DX: D12.3 Benign neoplasm of transverse colon (principal); K62.1 Rectal polyp; K57.30 Diverticulosis of large intestine without perforation or abscess without bleeding; K52.9 Noninfective gastroenteritis and colitis, unspecified; E78.5 Hyperlipidemia, unspecified; N40.0 Benign prostatic hyperplasia without lower urinary tract symptoms; E11.9 Type 2 diabetes mellitus without complications; Z87.891 Personal history of nicotine dependence; Z79.84 Long term (current) use of oral hypoglycemic drugs; Z79.899 Other long term (current) drug therapy; Z98.890 Other specified postprocedural states
CPT/HCPCS: 45380; 45385; J2704; 88305

== ENCOUNTER 2024-03-15 13:35 | Emergency (ER) | payer OTHER ==
[2024-03-15 13:46] VITALS: TEMP 98.3
[2024-03-15] MEDS: MECLIZINE 12.5 MG TAB PO STA (15:22)
[2024-03-15] MEDS: ONDANSETRON ODT 4 MG TAB PO STA (15:22)
[2024-03-15] MEDS: SODIUM CHLORIDE 0.9% 1,000 ML IV STA (15:23)
--- NOTE | 2024-03-15 15:30 | ED ---
Dizziness HPI - General Chief Complaint: Dizziness Stated Complaint: vertigo Time Seen by Provider: 03/15/24 14:07 Source: patient, RN notes reviewed Mode of arrival: EMS Limitations: no limitations - History of Present Illness Initial Comments: This is a 73-year-old male who presents to the emergency department for dizziness. States that when he woke up this morning he had a room spinning sensation. This is similar to when he had vertigo 5 years ago. Symptoms are positional. States that the last time he had vertigo the Eleni maneuver worked well. He has never tried Antivert. Denies any chest pain or shortness of breath. MD Complaint: dizziness - Related Data Home Medications Medication Instructions Recorded Confirmed Atorvastatin Calcium [Lipitor] 20 mg PO DAILY 09/06/15 10/11/23 metFORMIN HCL [Glucophage] 1,000 mg PO BID 09/06/15 10/11/23 Saxagliptin HCl [Onglyza] 2.5 mg PO DAILY 03/15/17 10/11/23 Aspirin 81 mg PO DAILY 07/10/17 10/11/23 Ibuprofen [Motrin] 200 - 400 mg PO Q6HR PRN 07/10/17 10/11/23 Previous Rx's Medication Instructions Recorded Tamsulosin [Flomax] 0.4 mg PO DAILY #20 cap 12/23/22 Meclizine [Antivert] 25 mg PO QID PRN #30 tab 03/15/24 Allergies Allergy/AdvReac Type Severity Reaction Status Date / Time No Known Allergies Allergy Verified 10/11/23 09:26 Review of Systems ROS Statement: Those systems with pertinent positive or pertinent negative responses have been documented in the HPI. ROS Other: All systems not noted in ROS Statement are negative. 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 turp 2022 straight caths himself Past Anesthesia/Blood Transfusion Reactions: No Reported Reaction Additional Past Anesthesia/Blood Transfusion Reaction / Comment(s): no blood transfusion Past Psychological History: No Psychological Hx Reported Smoking Status: Former smoker - Past Family History Father Family Medical History: No Reported History Mother Family Medical History: Cancer Additional Family Medical History / Comment(s): BOWEL CANCER General Exam Limitations: no limitations General appearance: alert, in no apparent distress Head exam: Present: atraumatic, normocephalic, normal inspection Eye exam: Present: normal appearance, PERRL, EOMI. Absent: scleral icterus, conjunctival injection, periorbital swelling Respiratory exam: Present: normal lung sounds bilaterally. Absent: respiratory distress, wheezes, rales, rhonchi, stridor Cardiovascular Exam: Present: regular rate, normal rhythm, normal heart sounds. Absent: systolic murmur, diastolic murmur, rubs, gallop, clicks Neurological exam: Present: alert, oriented X3, CN II-XII intact Psychiatric exam: Present: normal affect, normal mood Skin exam: Present: warm, dry, intact, normal color. Absent: rash Course Vital Signs 03/15/24 03/15/24 03/15/24 13:41 14:46 16:42 Temperature 98.3 F Pulse Rate 75 68 72 Respiratory 16 16 20 Rate Blood Pressure 144/71 130/68 138/68 O2 Sat by Pulse 100 98 Oximetry Medical Decision Making - Medical Decision Making This is a 73 year old male who presents to the emergency department for dizziness. Was pt. sent in by a medical professional or institution? @ -No Did you speak to anyone other than the patient for history? @ -No Did you review nursing and triage notes? @ -Yes, and I agree, it is accurate with regards to the patient's symptoms. Were old charts reviewed? @ -No Differential Diagnosis? @ -Differential Dizziness: Benign paroxysmal positional Vertigo, Menieres disease, otitis media, acoustic neuroma, vertebrobasilar insufficiency, cerebellar stroke, encephalitis, hypovolemic, arrhythmia, coronary artery syndrome, anemia, this is not meant to be an all-inclusive list EKG interpreted by me (3pts min.)? @ -EKG interpreted by me demonstrating the following: X-rays interpreted by me (1pt min.)? @ -Not obtained CT interpreted by me (1pt min.)? @ -Not obtained U/S interpreted by me (1pt. min.)? @ -Not obtained What testing was considered but not performed? (CT, X-rays, U/S, labs)? Why? @ -None What meds were considered but not given? Why? @ -None Did you discuss the management of the patient with other professionals? @ -No Did you reconcile home meds? @ -No Was smoking cessation discussed for >3mins.? @ -No Was critical care preformed (if so, how long)? @ -No Were there social determinants of health that impacted care today? How? (Homelessness, low income, unemployed, alcoholism, drug addiction, transportation, low edu. Level, literacy, decrease access to med. care, custodial, rehab)? @ -No Was there de-escalation of care discussed even if they declined? (Discuss DNR or withdrawal of care, Hospice)? @ -No What co-morbidities impacted this encounter? (DM, HTN, Smoking, COPD, CAD, Cancer, CVA, Hep., AIDS, mental health diagnosis, sleep apnea, morbid obesity)? @ -DM, HLD Was patient admitted / discharged? @ -Discharged. Lab work unremarkable. Patient reported that the symptoms feel the same as his prior bout of vertigo 5 years ago and requested the Eleni maneuver. This was performed and the patient was also given a dose of Antivert, Zofran, and a scopolamine patch. 1 L bolus of IV fluids administered as well. States that symptoms improved and had essentially resolved afterwards. Patient was given a prescription for Antivert and also advised of the half somersault maneuver he can use at home if symptoms return. Also advise follow-up with ENT. Patient discharged home in stable condition. Case discussed with ED attending Dr. Troy. Return precautions reviewed in depth, the patient is instructed to return to the emergency department with any new, worsening, or concerning symptoms. Patient verbalized understanding. Undiagnosed new problem with uncertain prognosis? @ -None Drug Therapy requiring intensive monitoring for toxicity (Heparin, Nitro, Insulin, Cardizem)? @ -None Were any procedures done? @ -None Diagnosis/symptom? @ -BPPV Acute, or Chronic, or Acute on Chronic? @ -Acute Uncomplicated (without systemic symptoms) or Complicated (systemic symptoms)? @ -Uncomplicated Side effects of treatment? @ -None Exacerbation, Progression, or Severe Exacerbation] @ -Not applicable Poses a threat to life or bodily function? @ -No - Lab Data Result diagrams: 03/15/24 14:51 03/15/24 14:51 Lab Results 03/15/24 03/15/24 Range/Units 14:51 14:51 WBC 9.8 (3.8-10.6) k/uL RBC 4.75 (4.30-5.90) m/uL Hgb 15.2 (13.0-17.5) gm/dL Hct 45.1 (39.0-53.0) % MCV 94.8 (80.0-100.0) fL MCH 31.9 (25.0-35.0) pg MCHC 33.7 (31.0-37.0) g/dL RDW 12.0 (11.5-15.5) % Plt Count 216 (150-450) k/uL MPV 7.7 Neutrophils % 83 % Lymphocytes % 11 % Monocytes % 5 % Eosinophils % 0 % Basophils % 0 % Neutrophils # 8.1 H (1.3-7.7) k/uL Lymphocytes # 1.0 (1.0-4.8) k/uL Monocytes # 0.5 (0-1.0) k/uL Eosinophils # 0.0 (0-0.7) k/uL Basophils # 0.0 (0-0.2) k/uL Sodium 136 L (137-145) mmol/L Potassium 4.4 (3.5-5.1) mmol/L Chloride 103 (98-107) mmol/L Carbon Dioxide 27 (22-30) mmol/L Anion Gap 6 mmol/L BUN 16 (9-20) mg/dL Creatinine 0.80 (0.66-1.25) mg/dL Est GFR (CKD-EPI)AfAm >90 (>60 ml/min/1.73 sqM) Est GFR (CKD-EPI)NonAf >90 (>60 ml/min/1.73 sqM) Glucose 182 H (74-99) mg/dL Calcium 9.4 (8.4-10.2) mg/dL Total Bilirubin 0.9 (0.2-1.3) mg/dL AST 20 (17-59) U/L ALT 15 (4-49) U/L Alkaline Phosphatase 68 (38-126) U/L Total Protein 6.6 (6.3-8.2) g/dL Albumin 4.3 (3.5-5.0) g/dL Disposition Clinical Impression: Benign paroxysmal positional vertigo Disposition: HOME SELF-CARE Instructions (If sedation given, give patient instructions): Vertigo (ED), Benign Paroxysmal Positional Vertigo (ED) Additional Instructions: Return to the emergency department with any new, worsening, or concerning symptoms. You can take the Antivert up to 4 times daily for feelings of vertigo. You can apply the Debrox drops to help with the ear wax. Apply 5 to 10 drops in both ears and leave in for several minutes. Do this twice a day for about 4 days. Look at the half somersault maneuver by Dr. Keshia Bailon online or on YouTube. This is a technique you can do at home to help with feelings of vertigo. Follow-up with ENT. Prescriptions: Meclizine [Antivert] 25 mg PO QID PRN #30 tab PRN Reason: Vertigo Is patient prescribed a controlled substance at d/c from ED?: No Referrals: [facility],Clinic [Primary Care Provider] - 1-2 days Bunny Oropeza MD [STAFF PHYSICIAN] - 1-2 days Adama Womack MD [STAFF PHYSICIAN] - 1-2 days Time of Disposition: 16:26
[2024-03-15] MEDS: SCOPOLAMINE 1 MG/72 HR PATCH TRANSDERM STA (15:38)
[2024-03-15 15:43] LABS: Basophils % (A) 0 %; Eosinophils % (A) 0 %; HCT 45.1 % (39.0-53.0); HGB 15.2 gm/dL (13.0-17.5); Lymphocytes % (A) 11 %; MCH 31.9 pg (25.0-35.0); MCHC 33.7 g/dL (31.0-37.0); MCV 94.8 fL (80.0-100.0); Mean Platelet Volume 7.7; Monocytes # (A) 0.5 k/uL (0-1.0); Monocytes % (A) 5 %; Neutrophils # (A) 8.1 k/uL (1.3-7.7); Neutrophils % (A) 83 %; Platelet Count 216 k/uL (150-450); RBC 4.75 m/uL (4.30-5.90); WBC 9.8 k/uL (3.8-10.6)
[2024-03-15 15:58] LABS: ALT 15 U/L (4-49); AST 20 U/L (17-59); African American GFR (CKD) >90 (>60 ml/min/1.73 sqM); Albumin 4.3 g/dL (3.5-5.0); Alkaline Phosphatase 68 U/L (38-126); Anion Gap 6 mmol/L; Blood Urea Nitrogen 16 mg/dL (9-20); Calcium 9.4 mg/dL (8.4-10.2); Carbon Dioxide 27 mmol/L (22-30); Chloride 103 mmol/L (98-107); Glucose 182 mg/dL (74-99); Non-African American GFR(CKD) >90 (>60 ml/min/1.73 sqM); Potassium 4.4 mmol/L (3.5-5.1); Sodium 136 mmol/L (137-145); Total Bilirubin 0.9 mg/dL (0.2-1.3); Total Protein 6.6 g/dL (6.3-8.2)
[2024-03-15] MEDS: CARBAMIDE PEROXIDE 6.5% DROPS 15 ML BTL BOTH EARS STA (16:17)
[2024-03-15 16:43] VITALS: BP 138/68; PULSE 72; RESP 20
== END 2024-03-15 16:43 ==
LOC: EC 13:35
DX: H81.10 Benign paroxysmal vertigo, unspecified ear (principal); Z87.891 Personal history of nicotine dependence
CPT/HCPCS: 36415; 80053; 85025; 96360; 99284

== ENCOUNTER → 2024-08-01 | Outpatient (CLI) | payer OTHER | END | disposition home or self-care (01) | LOC: LABPAT 11:50 | PROVIDERS: ATTEND Orthopaedic Surgery | DX: Z01.818 Encounter for other preprocedural examination (principal); Z22.322 Carrier or suspected carrier of Methicillin resistant Staphylococcus aureus; M17.12 Unilateral primary osteoarthritis, left knee | CPT/HCPCS: 87070 ==